=== PATIENT | female | born 1930 | race Caucasian/White ===

== ENCOUNTER → 2017-01-19 | Outpatient (CLI) | payer MEDICARE ==
--- NOTE | 2017-01-19 16:04 | XR ---
EXAMINATION TYPE: XR chest 2V DATE OF EXAM: 01/19/2017 COMPARISON: NONE INDICATION: Ventricular tachycardia, A. fib TECHNIQUE: Frontal and lateral views of the chest are obtained. FINDINGS: The heart size is normal. The pulmonary vasculature is normal. The lungs are clear. Single-lead pacemaker overlies the left chest. The wire lead appears intact as visualized. IMPRESSION: 1. No acute pulmonary process.
== END | disposition home or self-care (01) ==
LOC: RADXRMAIN 13:02
PROVIDERS: ATTEND Internal Medicine Interventional Cardiology
DX: I47.2 Ventricular tachycardia (principal); I48.0 Paroxysmal atrial fibrillation
CPT/HCPCS: 71020